=== PATIENT | female | born 1940 | race Caucasian/White ===

== ENCOUNTER 2017-02-23 22:09 | Inpatient (IN) | payer MEDICARE ==
[~2017-02-23] VITALS: Ht 172.7 cm; Wt 72.7 kg
[~2017-02-23 22:09] MED LIST: ADVAI250I INH; ALBU1AER INH; ATOR20TA PO; DILT30 PO; DOXE50CA3 PO; FURO20 PO; HALO0.5T PO; LEVO.025 PO; LORA0.5T PO; LORTA5 PO; POTA-243 PO; RIVA20 PO; SERT-129 PO; SPIRCAP INH; Z.0.COMMODE-3:1; Z.0.CPM; Z.0.WALKERFRONT
[2017-02-23 22:10] VITALS: BP 127/59; PULSE 102; RESP 16; TEMP 98; O2SAT 87
[2017-02-23] MEDS ORDERED: ACTIVATED CHARCOAL LIQUID 25 GM/120 ML BTL PO ONE (22:15)
--- NOTE | 2017-02-23 22:26 | PD ---
HPI Chief Complaint: OD/ Ingestion Time Seen by Provider: 22:11 Travel History International Travel<30 days: No Contact w/Intl Traveler<30days: No Traveled to known affect area: No History of Present Illness HPI 76-year-old female here for evaluation after unintentionally taking 28 of her 20 mg Xarelto pills today. Patient reports that she thought that she was taking her nightly medications. She then realized she was only taking the Xarelto. Other than feeling nervous about what could happen to her, the patient is denying any physical complaints. No chest pain or dyspnea. No abdominal pain. PFSH Past Medical History Atrial Fibrillation: Yes Cancer: No COPD: Yes Diabetes: No Endocrine: No Gastrointestinal Disorders: Yes (CONSTIPATION ) Genitourinary: No Hepatitis: No Hiatal Hernia: Yes (EXTENDS OVE AND RESTS ON LUNGS/HEART) Hypertension: Yes (PAST HISTORY) Immune Disorder: No Musculoskeletal: Yes (OSTEOARTHRITIS LEFT KNEE, RIGHT HIP) Neurologic: No Psychiatric: Yes (DEPRESSION/ANXIETY) Reproductive: No Respiratory: Yes (COPD) Tetanus Vaccination: Unknown Influenza Vaccination: Yes Past Surgical History Abdominal Surgery: No AICD: No Body Medical Devices: 5 DENTAL IMPLANTS Cardiac Surgery: No Ear Surgery: No Endocrine Surgery: No Eye Surgery: No Genitourinary Surgery: No Gynecologic Surgery: Yes (D&C, MULTIPLE ) Joint Replacement: Yes (BILATERAL KNEE REPLACEMENT) Oral Surgery: Yes (DENTAL IMPLANTS X 4, TONSILLECTOMY) Pacemaker: No Thoracic Surgery: No Other Surgery: Yes Social History Alcohol Use: No Tobacco Use: No Substance Use: No Allergies-Medications (Allergen,Severity, Reaction): Coded Allergies: No Known Allergies (Unverified Adverse Reaction, Unknown, 02/23/17) Reported Meds & Prescriptions Reported Meds & Active Scripts Active Reported Flecainide (Flecainide Acetate) 50 Mg Tab 50 Mg PO BID Lorazepam 0.5 Mg Tab 0.25 Mg PO HS PRN Doxepin (Doxepin HCl) 50 Mg Cap 50 Mg PO DAILY Xarelto (Rivaroxaban) 20 Mg Tab 20 Mg PO DAILY Levothyroxine (Levothyroxine Sodium) 150 Mcg Tab 150 Mcg PO DAILY Furosemide 40 Mg Tab 40 Mg PO DAILY Atorvastatin (Atorvastatin Calcium) 20 Mg Tab 20 Mg PO DAILY Sertraline (Sertraline HCl) 100 Mg Tab 100 Mg PO DAILY Iron (Ferrous Sulfate) 18 Mg Tab 65 Mg PO DAILY Docusate Sodium 250 Mg Cap 240 Mg PO DAILY Review of Systems Except as stated in HPI: all other systems reviewed are Neg Physical Exam Narrative GENERAL: Well-developed, well-nourished, awake, alert, comfortable, no apparent distress. SKIN: Focused skin assessment warm/dry. HEAD: Atraumatic. Normocephalic. EYES: Pupils equal and round. No scleral icterus. No injection or drainage. ENT: Mucous membranes pink and moist. NECK: Trachea midline. No JVD. CARDIOVASCULAR: Regular rate and rhythm. No murmur appreciated. RESPIRATORY: No accessory muscle use. Clear to auscultation. Breath sounds equal bilaterally. GASTROINTESTINAL: Abdomen soft, non-tender, nondistended. MUSCULOSKELETAL: No obvious deformities. No clubbing. No cyanosis. No edema. NEUROLOGICAL: Awake and alert. No obvious cranial nerve deficits. Motor grossly within normal limits. Normal speech. PSYCHIATRIC: Appropriate mood and affect; insight and judgment normal. Data Data Last Documented VS Vital Signs Date Time Temp Pulse Resp B/P (MAP) Pulse Ox O2 Delivery O2 Flow Rate FiO2 02/23/17 22:51 95 Nasal Cannula 4.00 02/23/17 22:10 98.0 102 16 127/59 (81) Orders Orders Complete Blood Count With Diff (02/23/17 22:14) Comprehensive Metabolic Panel (02/23/17 22:14) Electrocardiogram (02/23/17 22:14) Salicylates (Aspirin) (02/23/17 22:14) Tylenol (Acetaminophen) (02/23/17 22:14) Charcoal Activated Liq (Actidose-Aqua Li (02/23/17 22:15) Prothrombin Time / Inr (Pt) (02/23/17 22:25) Act Partial Throm Time (Ptt) (02/23/17 22:25) Labs Laboratory Tests Test 02/23/17 22:20 02/23/17 22:30 White Blood Count 7.1 TH/MM3 Red Blood Count 3.11 MIL/MM3 Hemoglobin 10.9 GM/DL Hematocrit 32.0 % Mean Corpuscular Volume 103.0 FL Mean Corpuscular Hemoglobin 35.1 PG Mean Corpuscular Hemoglobin Concent 34.1 % Red Cell Distribution Width 14.9 % Platelet Count 128 TH/MM3 Mean Platelet Volume 9.1 FL Neutrophils (%) (Auto) 71.7 % Lymphocytes (%) (Auto) 17.2 % Monocytes (%) (Auto) 9.1 % Eosinophils (%) (Auto) 1.1 % Basophils (%) (Auto) 0.9 % Neutrophils # (Auto) 5.1 TH/MM3 Lymphocytes # (Auto) 1.2 TH/MM3 Monocytes # (Auto) 0.6 TH/MM3 Eosinophils # (Auto) 0.1 TH/MM3 Basophils # (Auto) 0.1 TH/MM3 CBC Comment DIFF FINAL Differential Comment Blood Urea Nitrogen 5 MG/DL Creatinine 0.74 MG/DL Random Glucose 87 MG/DL Total Protein 6.2 GM/DL Albumin 2.7 GM/DL Calcium Level 8.0 MG/DL Alkaline Phosphatase 137 U/L Aspartate Amino Transf (AST/SGOT) 48 U/L Alanine Aminotransferase (ALT/SGPT) 31 U/L Total Bilirubin 0.6 MG/DL Sodium Level 139 MEQ/L Potassium Level 3.4 MEQ/L Chloride Level 96 MEQ/L Carbon Dioxide Level 36.2 MEQ/L Anion Gap 7 MEQ/L Estimat Glomerular Filtration Rate 76 ML/MIN Acetaminophen Level LESS THAN 2.0 MCG/ML Prothrombin Time 23.7 SEC Prothromb Time International Ratio 2.3 RATIO Activated Partial Thromboplast Time 50.1 SEC MDM Medical Decision Making Medical Screen Exam Complete: Yes Emergency Medical Condition: Yes Differential Diagnosis Xarelto overdose, coagulopathy Narrative Course Shortly after the patient arrived in the emergency department, poison control was contacted by my nurse, and they recommend starting the patient on activated charcoal as long as the ingestion occurred within 1 hour. Patient reports that the ingestion just occurred about 20-30 minutes prior to arrival. CBC: WBC 7.1, hemoglobin 10.9, hematocrit 32, platelets 128. CMP is remarkable for bicarbonate 36.2, otherwise essentially unremarkable. Tylenol level is negative. PT 23.7, INR 2.3, PTT 50.1. Poison control's new use recommendation is to observe the patient overnight for repeat labs, repeat coags every 4-6 hours, and monitor for signs of bleeding. Case discussed with hotel service supervisor Dr. Ruiz who will admit the patient to his service. Diagnosis Primary Impression: Accidental medication overdose Qualified Codes: T50.901A - Poisoning by unspecified drugs, medicaments and biological substances, accidental (unintentional), initial encounter Admitting Information Admitting Physician Requests: Observation Mccarty,Liban N MD Feb 23, 2017 22:26
[2017-02-23] MEDS ORDERED: FLEC1TAB8 PO (22:32)
[2017-02-23] MEDS ORDERED: ATOR20TA15 PO (22:32)
[2017-02-23] MEDS ORDERED: DOCU250C7 PO (22:32)
[2017-02-23] MEDS ORDERED: LEVO150T7 PO (22:32)
[2017-02-23] MEDS ORDERED: IRON18TA PO (22:32)
[2017-02-23] MEDS ORDERED: FURO40TA PO (22:32)
[2017-02-23] MEDS ORDERED: XARE20TA PO (22:32)
[2017-02-23] MEDS ORDERED: SERT-129 PO (22:32)
[2017-02-23] MEDS ORDERED: LORA0.5T PO (22:32)
[2017-02-23] MEDS ORDERED: DOXE50CA3 PO (22:32)
[2017-02-23 22:44] LABS: AUTOMATED NEUTROPHIL # 5.1 TH/MM3 (1.8-7.7); BASOPHIL # 0.1 TH/MM3 (0-0.2); BASOPHIL % 0.9 % (0.0-2.0); EOSINOPHIL # 0.1 TH/MM3 (0-0.4); EOSINOPHIL % 1.1 % (0.0-4.0); HEMO FLAGS DIFF FINAL; LYMPH % 17.2 % (9.0-44.0); LYMPHOCYTE # 1.2 TH/MM3 (1.0-4.8); MEAN CORPUSCULAR HEMOGLOBIN 35.1 PG (27.0-34.0); MEAN CORPUSCULAR HGB CONC 34.1 % (32.0-36.0); MONO % 9.1 % (0.0-8.0); NEUT % 71.7 % (16.0-70.0); PLATELET COUNT 128 TH/MM3 (150-450); RED BLOOD COUNT 3.11 MIL/MM3 (4.00-5.30); RED CELL DISTRIBUTION WIDTH 14.9 % (11.6-17.2); WHITE BLOOD COUNT 7.1 TH/MM3 (4.0-11.0)
[2017-02-23 22:51] VITALS: O2SAT 95
[2017-02-23 23:07] LABS: ANION GAP 7 MEQ/L (5-15); AST (GOT) 48 U/L (15-37); BICARBONATE 36.2 MEQ/L (21.0-32.0); BLOOD UREA NITROGEN 5 MG/DL (7-18); CHLORIDE 96 MEQ/L (98-107); GLOMERULAR FILTRATION RATE 76 ML/MIN (>89); POTASSIUM 3.4 MEQ/L (3.5-5.1); SODIUM (NA) 139 MEQ/L (136-145)
[2017-02-23 23:10] LABS: ACETAMINOPHEN LESS THAN 2.0 MCG/ML (10.0-30.0); ALKALINE PHOSPHATASE 137 U/L (45-117); ALT (GPT) 31 U/L (10-53); TOTAL BILIRUBIN ADULT 0.6 MG/DL (0.2-1.0)
[2017-02-23 23:18] LABS: APTT (PATIENT) 50.1 SEC (24.3-30.1); INTERNATIONAL NORMALIZED RATIO 2.3 RATIO; PROTHROMBIN TIME - PATIENT 23.7 SEC (9.8-11.6)
[2017-02-23] MEDS ORDERED: RESP: ALBUTEROL 2.5 MG/IPRATROPIUM 0.5 MG NEB (PRN) INH (23:30)
[2017-02-23] MEDS ORDERED: ONDANSETRON HCL 4 MG/2 ML VIAL IV PUSH PRN (23:30)
[2017-02-23] MEDS ORDERED: ACETAMINOPHEN 325 MG TAB PO PRN (23:30)
[2017-02-23] MEDS ORDERED: MISCELLANEOUS NURSING INFORMATION XX SCH (23:30)
[2017-02-23] MEDS ORDERED: SODIUM CHLORIDE 0.9% FLUSH 10 ML FLUSH IV FLUSH PRN (23:30)
[2017-02-23] MEDS ORDERED: CHLORHEXIDINE GLUCONATE 2 % 1 PACK (2 CLOTHS) TOP PRN (23:30)
[2017-02-23] MEDS ORDERED: LORazepam 0.5 MG TAB PO PRN (23:45)
[2017-02-23] MEDS ORDERED: PILL SPLITTER OTHER PRN (23:45)
[2017-02-24] VITALS (14 sets, daily range): BP systolic 106–119; BP diastolic 52–61; PULSE 76–88; RESP 12–18; TEMP 98.2–98.8; O2SAT 93–98
[2017-02-24] MEDS: SODIUM CHLOR 0.9% 1000 ML INJ 1,000 ML IV SCH ×2 (00:17→20:56)
[2017-02-24] MEDS: PANTOPRAZOLE SODIUM 40 MG VIAL IV PUSH SCH ×3 (00:17→20:57)
[2017-02-24] MEDS: FLECAINIDE ACETATE 100 MG TAB PO SCH ×3 (00:56→20:57)
--- NOTE | 2017-02-24 01:36 | HHI.HP ---
[facility] Service Critical Care Medicine Primary Care Physician Basia Solares MD Admission Diagnosis Unintentional Xarelto Overdose Diagnosis: (1) Coagulopathy Diagnosis: Principal (2) Accidental medication overdose Diagnosis: Principal Travel History International Travel<30 Days: No Contact w/Intl Traveler <30 Da: No Traveled to Known Affected Are: No History of Present Illness 76 y/o woman accidently ingested 28 of her 20 mg xarelto tablets. Permanent atrial fibrillation. States she was confused. On arrival INR is prolonged. No active bleeding, stable hemodynamics. Poison control recommends q4h PT-INR. Review of Systems Constitutional: DENIES: Diaphoretic episodes, Fatigue, Fever, Weight gain, Weight loss, Chills, Dizziness, Change in appetite, Night Sweats Endocrine: DENIES: Abnorml menstrual pattern, Heat/cold intolerance, Polydipsia , Polyuria, Polyphagia Eyes: DENIES: Blurred vision, Diplopia, Eye inflammation, Eye pain, Vision loss , Photosensitivity, Double Vision Ears, nose, mouth, throat: DENIES: Tinnitus, Hearing loss, Vertigo, Nasal discharge, Oral lesions, Throat pain, Hoarseness, Ear Pain, Running Nose, Epistaxis, Sinus Pain, Toothache, Odynophagia Respiratory: DENIES: Apneas, Cough, Snoring, Wheezing, Hemoptysis, Sputum production, Shortness of breath Cardiovascular: DENIES: Chest pain, Palpitations, Syncope, Dyspnea on Exertion , PND, Lower Extremity Edema, Orthopnea, Claudication Gastrointestinal: DENIES: Abdominal pain, Black stools, Bloody stools, Constipation, Diarrhea, Nausea, Vomiting, Difficulty Swallowing, Anorexia Genitourinary: DENIES: Abnormal vaginal bleeding, Dysmenorrhea, Dyspareunia, Sexual dysfunction, Urinary frequency, Urinary incontinence, Urgency, Hematuria , Dysuria, Nocturia, Vaginal discharge Musculoskeletal: COMPLAINS OF: Joint pain Integumentary: DENIES: Abnormal pigmentation, Pruritus, Rash, Nail changes, Breast masses, Breast skin changes, Nipple discharge Immunologic/allergic: DENIES: Eczema, Urticaria Past Family Social History Allergies: Coded Allergies: No Known Allergies (Unverified Allergy, Unknown, 02/23/17) Physical Exam Vital Signs Vital Signs Date Time Temp Pulse Resp B/P (MAP) Pulse Ox O2 Delivery O2 Flow Rate FiO2 02/24/17 00:34 02/24/17 00:20 88 16 108/61 (77) 94 Nasal Cannula 4.00 02/23/17 22:51 95 Nasal Cannula 4.00 02/23/17 22:16 91 Nasal Cannula 4.00 02/23/17 22:10 98.0 102 16 127/59 (81) 87 Physical Exam Gen: Well appearing. Head: Atraumatic. Neck: Supple, airway patent. Lungs: Clear. Heart: Irreg Irreg. No JVD. Abdomen: Benign, soft, no guarding. Extremities: Warm, well perfused. Neuro: O X 3, alert, cooperative. M/S grossly intact. Laboratory Laboratory Tests Test 02/23/17 22:20 02/23/17 22:30 02/24/17 00:40 White Blood Count 7.1 Red Blood Count 3.11 Hemoglobin 10.9 Hematocrit 32.0 Mean Corpuscular Volume 103.0 Mean Corpuscular Hemoglobin 35.1 Mean Corpuscular Hemoglobin Concent 34.1 Red Cell Distribution Width 14.9 Platelet Count 128 Mean Platelet Volume 9.1 Neutrophils (%) (Auto) 71.7 Lymphocytes (%) (Auto) 17.2 Monocytes (%) (Auto) 9.1 Eosinophils (%) (Auto) 1.1 Basophils (%) (Auto) 0.9 Neutrophils # (Auto) 5.1 Lymphocytes # (Auto) 1.2 Monocytes # (Auto) 0.6 Eosinophils # (Auto) 0.1 Basophils # (Auto) 0.1 CBC Comment DIFF FINAL Differential Comment Blood Urea Nitrogen 5 Creatinine 0.74 Random Glucose 87 Total Protein 6.2 Albumin 2.7 Calcium Level 8.0 Alkaline Phosphatase 137 Aspartate Amino Transf (AST/SGOT) 48 Alanine Aminotransferase (ALT/SGPT) 31 Total Bilirubin 0.6 Sodium Level 139 Potassium Level 3.4 Chloride Level 96 Carbon Dioxide Level 36.2 Anion Gap 7 Estimat Glomerular Filtration Rate 76 Salicylates Level LESS THAN 1.7 Acetaminophen Level LESS THAN 2.0 Prothrombin Time 23.7 Prothromb Time International Ratio 2.3 Activated Partial Thromboplast Time 50.1 Result Diagram: 02/23/17221902/23/172219 Caprini VTE Risk Assessment Caprini VTE Risk Assessment: No/Low Risk (score <= 1) Caprini Risk Assessment Model Point Value = 1 Point Value = 2 Point Value = 3 Point Value = 5 Age 41-60 Minor surgery BMI > 25 kg/m2 Swollen legs Varicose veins or History of unexplained or recurrent spontaneous Oral contraceptives or hormone replacement Sepsis (< 1 month) Serious lung disease, including pneumonia (< 1 month) Abnormal pulmonary function Acute myocardial infarction Congestive heart failure (< 1 month) History of inflammatory bowel disease Medical patient at bed rest Age 61-74 Arthroscopic surgery Major open surgery (> 45 min) Laparoscopic surgery (> 45 min) Malignancy Confined to bed (> 72 hours) Immobilizing plaster cast Central venous access Age >= 75 History of VTE Family history of VTE Factor V Leiden Prothrombin [id number] Lupus anticoagulant Anticardiolipin antibodies Elevated serum homocysteine Heparin-induced thrombocytopenia Other congenital or acquired thrombophilia Stroke (< 1 month) Elective arthroplasty Hip, pelvis, or leg fracture Acute spinal cord injury (< 1 month) Prophylaxis Regimen Total Risk Factor Score Risk Level Prophylaxis Regimen 0-1 Low Early ambulation 2 Moderate Order ONE of the following: *Sequential Compression Device (SCD) *Heparin 5000 units SQ BID 3-4 Higher Order ONE of the following medications: *Heparin 5000 units SQ TID *Enoxaparin/Lovenox 40 mg SQ daily (WT < 150 kg, CrCl > 30 mL/min) *Enoxaparin/Lovenox 30 mg SQ daily (WT < 150 kg, CrCl > 10-29 mL/min) *Enoxaparin/Lovenox 30 mg SQ BID (WT < 150 kg, CrCl > 30 mL/min) AND/OR *Sequential Compression Device (SCD) 5 or more Highest Order ONE of the following medications: *Heparin 5000 units SQ TID (Preferred with Epidurals) *Enoxaparin/Lovenox 40 mg SQ daily (WT < 150 kg, CrCl > 30 mL/min) *Enoxaparin/Lovenox 30 mg SQ daily (WT < 150 kg, CrCl > 10-29 mL/min) *Enoxaparin/Lovenox 30 mg SQ BID (WT < 150 kg, CrCl > 30 mL/min) AND *Sequential Compression Device (SCD) Assessment and Plan Assessment and Plan Assessment: 1. Coagulopathy. 2. Permanent A-fib. 3. Accidental xarelto overdose. Plan. 1. ICU admit. 2. Protonix BID. 3. Q4h INR per Poison Control, treat only for bleeding. 4. Follow BP closely. 5. No chemical DVT px necessary. 6. K-centra prn bleeding or excessive INR. Overall impression: I anticipate we will need a PCC at some time during first 24 hours. Direct Xa inhibitor will eventually elevate INR and PTT; following INR is probably adequate. Problem Qualifiers (1) Accidental medication overdose: Qualified Codes: T50.901A - Poisoning by unspecified drugs, medicaments and biological substances, accidental (unintentional), initial encounter Jose Ruiz MD Feb 24, 2017 01:36
[2017-02-24] MEDS: CHLORHEXIDINE GLUCONATE 2 % 1 PACK (2 CLOTHS) TOP SCH (04:00)
[2017-02-24 04:39] LABS: AUTOMATED NEUTROPHIL # 3.4 TH/MM3 (1.8-7.7); BASOPHIL % 0.7 % (0.0-2.0); EOSINOPHIL # 0.1 TH/MM3 (0-0.4); EOSINOPHIL % 1.4 % (0.0-4.0); HEMATOCRIT 29.8 % (35.0-46.0); HEMO FLAGS DIFF FINAL; MEAN CELL VOLUME 103.1 FL (80.0-100.0); MEAN CORPUSCULAR HEMOGLOBIN 34.3 PG (27.0-34.0); MEAN CORPUSCULAR HGB CONC 33.3 % (32.0-36.0); MONO % 9.1 % (0.0-8.0); NEUT % 68.8 % (16.0-70.0); PLATELET COUNT 116 TH/MM3 (150-450); RED BLOOD COUNT 2.89 MIL/MM3 (4.00-5.30); RED CELL DISTRIBUTION WIDTH 15.3 % (11.6-17.2); WHITE BLOOD COUNT 4.9 TH/MM3 (4.0-11.0)
[2017-02-24 04:54] LABS: APTT (PATIENT) 39.4 SEC (24.3-30.1); INTERNATIONAL NORMALIZED RATIO 1.8 RATIO; PROTHROMBIN TIME - PATIENT 18.1 SEC (9.8-11.6)
[2017-02-24] MEDS: LEVOTHYROXINE SODIUM 150 MCG TAB PO SCH (05:37)
[2017-02-24] MEDS: SERTRALINE HCL 100 MG TAB PO SCH ×3 (08:09→20:57)
[2017-02-24] MEDS: DOCUSATE CALCIUM 240 MG CAP PO SCH (08:09)
[2017-02-24] MEDS: FUROSEMIDE 40 MG TAB PO SCH (08:09)
[2017-02-24] MEDS: ATORVASTATIN 20 MG TAB PO SCH (08:10)
[2017-02-24] MEDS: SODIUM CHLORIDE 0.9% FLUSH 10 ML FLUSH IV FLUSH SCH ×2 (08:11→20:57)
[2017-02-24] MEDS ORDERED: DOXEPIN HCL 50 MG CAP PO SCH (09:00)
[2017-02-24] MEDS ORDERED: POTASSIUM CHLORIDE 20 MEQ CONTROLLED RELEASE TAB PO ONE (11:00)
[2017-02-24 11:38] LABS: INTERNATIONAL NORMALIZED RATIO 1.4 RATIO; PROTHROMBIN TIME - PATIENT 14.2 SEC (9.8-11.6)
[2017-02-24 13:45] LABS: INTERNATIONAL NORMALIZED RATIO 1.3 RATIO; PROTHROMBIN TIME - PATIENT 13.4 SEC (9.8-11.6)
[2017-02-24 19:17] LABS: INTERNATIONAL NORMALIZED RATIO 1.3 RATIO; PROTHROMBIN TIME - PATIENT 12.7 SEC (9.8-11.6)
[2017-02-24] MEDS: DOXEPIN HCL 50 MG CAP PO SCH (20:57)
[2017-02-24 22:19] LABS: INTERNATIONAL NORMALIZED RATIO 1.3 RATIO; PROTHROMBIN TIME - PATIENT 12.7 SEC (9.8-11.6)
--- NOTE | 2017-02-24 22:27 | EKG ---
Date Performed: 02/23/2017 Time Performed: 22:20:24 PTAGE: 76 years EKG: Sinus rhythm MARKED RIGHT AXIS DEVIATION RIGHT BUNDLE BRANCH BLOCK ABNORMAL ECG PREVIOUS TRACING : 01/02/2015 12.24 Compared to the previous tracing Afib is no longer present DOCTOR: Neo Sumner Interpretating Date/Time 02/24/2017 22:25:33
[2017-02-25] VITALS (14 sets, daily range): BP systolic 95–126; BP diastolic 51–62; PULSE 67–89; RESP 15–59; TEMP 97.9–98.8; O2SAT 89–100
[2017-02-25 01:20] LABS: INTERNATIONAL NORMALIZED RATIO 1.2 RATIO; PROTHROMBIN TIME - PATIENT 12.5 SEC (9.8-11.6)
[2017-02-25] MEDS: CHLORHEXIDINE GLUCONATE 2 % 1 PACK (2 CLOTHS) TOP SCH (03:39)
[2017-02-25 04:33] LABS: INTERNATIONAL NORMALIZED RATIO 1.2 RATIO
[2017-02-25] MEDS: LEVOTHYROXINE SODIUM 150 MCG TAB PO SCH (06:10)
[2017-02-25] MEDS: FUROSEMIDE 40 MG TAB PO SCH (07:44)
[2017-02-25] MEDS: PANTOPRAZOLE SODIUM 40 MG VIAL IV PUSH SCH ×2 (07:44→19:50)
[2017-02-25] MEDS: DOCUSATE CALCIUM 240 MG CAP PO SCH (07:44)
[2017-02-25] MEDS: ATORVASTATIN 20 MG TAB PO SCH (07:44)
[2017-02-25] MEDS: FLECAINIDE ACETATE 100 MG TAB PO SCH ×2 (07:44→19:50)
[2017-02-25] MEDS: SODIUM CHLORIDE 0.9% FLUSH 10 ML FLUSH IV FLUSH SCH ×2 (07:45→19:51)
[2017-02-25 08:27] LABS: INTERNATIONAL NORMALIZED RATIO 1.1 RATIO; PROTHROMBIN TIME - PATIENT 11.5 SEC (9.8-11.6)
--- NOTE | 2017-02-25 11:01 | HHI.CCPN ---
Subjective Remarks/Hospital Course 76 y/o woman accidently ingested 28 of her 20 mg xarelto tablets. Permanent atrial fibrillation. States she was confused. On arrival INR is prolonged. No active bleeding, stable hemodynamics. Poison control recommends q4h PT-INR. 02/25 Patient is lying in bed in [facility]. Afebrile. Objective Vital Signs Date Time Temp Pulse Resp B/P (MAP) Pulse Ox O2 Delivery O2 Flow Rate FiO2 02/25/17 10:00 89 02/25/17 08:47 97 Nasal Cannula 3.00 02/25/17 08:00 98.6 15 119/57 (77) Intake and Output 02/25/17 02/25/17 02/26/17 08:00 16:00 00:00 Intake Total 694 ml 205 ml Balance 694 ml 205 ml Result Diagram: 02/24/17 0412 02/23/17 2220 Other Results Laboratory Tests Test 02/24/17 13:09 02/24/17 17:38 02/24/17 20:40 02/25/17 00:58 Prothrombin Time 13.4 SEC 12.7 SEC 12.7 SEC 12.5 SEC Prothromb Time International Ratio 1.3 RATIO 1.3 RATIO 1.3 RATIO 1.2 RATIO Test 02/25/17 04:08 02/25/17 07:55 Prothrombin Time 12.0 SEC 11.5 SEC Prothromb Time International Ratio 1.2 RATIO 1.1 RATIO Objective Remarks GENERAL: Patient is lying in bed in [facility] SKIN: Warm and dry. HEAD: Normocephalic. EYES: No scleral icterus. No injection or drainage. NECK: Supple, trachea midline. No JVD or lymphadenopathy. CARDIOVASCULAR: Regular rate and rhythm without murmurs, gallops, or rubs. RESPIRATORY: Breath sounds equal bilaterally. No accessory muscle use. GASTROINTESTINAL: Abdomen soft, non-tender, nondistended. MUSCULOSKELETAL: No cyanosis, or edema. neuro: Awake and alert. A/P Assessment and Plan 1)Resp Insuff 2)s/p Coagulopathy. 3)Permanent A-fib. 4)Accidental xarelto overdose. 5) Anemia 6) Elevated AST Plan. Neuro: Awake and alert. On Zoloft and Doxepin Pulm: Oxygen PRN keep sat >92% Bronchodilators CV: Monitor HR and BP keep MAP>65mmHg on Flecainide 50mg BID GI: On PO diet : Monitor renal function, electrolytes replacement per protocol On Lasix 40mg daily,d/c IVF ID: Monitor for signs of infections ( Fever, WBC) Endo; SSI if needed for glycemic control On Synthroid 150 mcg daily Heme: Monitor CBC, coags- INR 1.1 today GI/DVT prophylaxis Check labs today Will transfer out ICU and consult [facility] for medical management. Level 2 Jillian Bunch MD Feb 25, 2017 11:01
[2017-02-25 11:18] LABS: HEMATOCRIT 34.2 % (35.0-46.0); MEAN CELL VOLUME 104.5 FL (80.0-100.0); MEAN CORPUSCULAR HEMOGLOBIN 34.4 PG (27.0-34.0); MEAN CORPUSCULAR HGB CONC 32.9 % (32.0-36.0); PLATELET COUNT 128 TH/MM3 (150-450); RED BLOOD COUNT 3.27 MIL/MM3 (4.00-5.30); REVIEW FLAG FINAL; WHITE BLOOD COUNT 4.7 TH/MM3 (4.0-11.0)
[2017-02-25 11:28] LABS: INTERNATIONAL NORMALIZED RATIO 1.1 RATIO; PROTHROMBIN TIME - PATIENT 11.6 SEC (9.8-11.6)
[2017-02-25 11:38] LABS: ALT (GPT) 19 U/L (10-53)
[2017-02-25 11:39] LABS: ALKALINE PHOSPHATASE 117 U/L (45-117); TOTAL BILIRUBIN ADULT 0.7 MG/DL (0.2-1.0)
[2017-02-25 11:41] LABS: ANION GAP 5 MEQ/L (5-15); AST (GOT) 40 U/L (15-37); BICARBONATE 37.4 MEQ/L (21.0-32.0); BLOOD UREA NITROGEN 3 MG/DL (7-18); CHLORIDE 97 MEQ/L (98-107); GLOMERULAR FILTRATION RATE 119 ML/MIN (>89); MAGNESIUM 1.1 MG/DL (1.5-2.5); SODIUM (NA) 139 MEQ/L (136-145)
[2017-02-25] MEDS ORDERED: POTASSIUM PHOSPHATE MONOBASIC 500 MG TAB PO PRN (13:00)
[2017-02-25] MEDS ORDERED: POTASSIUM PHOSPHATE INJ 30 MMOL in SODIUM CHLOR 0.9% 250 ML INJ 250 ML IV PRN (13:00)
[2017-02-25] MEDS ORDERED: POTASSIUM CHLORIDE 25 MEQ EFFERVESCENT TAB PO PRN (13:00)
[2017-02-25] MEDS ORDERED: POTASSIUM CHLOR 40 MEQ PREMIX 100 ML IV PRN ×2 (13:00)
[2017-02-25] MEDS ORDERED: MAGNESIUM OXIDE 400 MG TAB PO PRN (13:00)
[2017-02-25] MEDS ORDERED: MAGNESIUM SULFATE INJ 2 GM in SODIUM CHLORIDE 0.9% INJ 96 ML IV PRN (13:00)
[2017-02-25] MEDS ORDERED: SODIUM PHOSPHATE INJ 30 MMOL in SODIUM CHLOR 0.9% 250 ML INJ 240 ML IV PRN (13:00)
[2017-02-25] MEDS ORDERED: POTASSIUM CHLOR 20 MEQ PREMIX 100 ML IV PRN (13:00)
[2017-02-25] MEDS ORDERED: MAGNESIUM SULFATE INJ 4 GM in SODIUM CHLORIDE 0.9% INJ 92 ML IV PRN (13:00)
[2017-02-25] MEDS ORDERED: POTASSIUM PHOSPHATE MONOBASIC 500 MG TAB PO/TUBE PRN (13:00)
[2017-02-25] MEDS: POTASSIUM CHLOR 20 MEQ PREMIX 100 ML IV PRN ×4 (14:40→22:07)
[2017-02-25 17:19] LABS: INTERNATIONAL NORMALIZED RATIO 1.1 RATIO; PROTHROMBIN TIME - PATIENT 11.5 SEC (9.8-11.6)
[2017-02-25 19:20] LABS: INTERNATIONAL NORMALIZED RATIO 1.2 RATIO; PROTHROMBIN TIME - PATIENT 11.8 SEC (9.8-11.6)
[2017-02-25] MEDS: DOXEPIN HCL 50 MG CAP PO SCH (19:50)
[2017-02-25] MEDS: SERTRALINE HCL 100 MG TAB PO SCH (19:50)
[2017-02-25 22:56] LABS: INTERNATIONAL NORMALIZED RATIO 1.1 RATIO; PROTHROMBIN TIME - PATIENT 11.3 SEC (9.8-11.6)
[2017-02-26] VITALS (7 sets, daily range): BP systolic 99–126; BP diastolic 50–61; PULSE 67–82; RESP 16–19; TEMP 96.9–98.3; O2SAT 91–100
[2017-02-26] MEDS: CHLORHEXIDINE GLUCONATE 2 % 1 PACK (2 CLOTHS) TOP SCH (04:00)
[2017-02-26] MEDS: LEVOTHYROXINE SODIUM 150 MCG TAB PO SCH (04:51)
[2017-02-26 05:52] LABS: AUTOMATED NEUTROPHIL # 3.1 TH/MM3 (1.8-7.7); BASOPHIL % 0.6 % (0.0-2.0); EOSINOPHIL # 0.2 TH/MM3 (0-0.4); EOSINOPHIL % 3.4 % (0.0-4.0); HEMATOCRIT 31.3 % (35.0-46.0); HEMO FLAGS DIFF FINAL; LYMPH % 20.9 % (9.0-44.0); MEAN CELL VOLUME 104.6 FL (80.0-100.0); MEAN CORPUSCULAR HEMOGLOBIN 34.3 PG (27.0-34.0); MEAN CORPUSCULAR HGB CONC 32.8 % (32.0-36.0); MONO % 9.9 % (0.0-8.0); NEUT % 65.2 % (16.0-70.0); PLATELET COUNT 119 TH/MM3 (150-450); WHITE BLOOD COUNT 4.8 TH/MM3 (4.0-11.0)
[2017-02-26 05:55] LABS: INTERNATIONAL NORMALIZED RATIO 1.1 RATIO; PROTHROMBIN TIME - PATIENT 11.4 SEC (9.8-11.6)
[2017-02-26 06:13] LABS: BLOOD UREA NITROGEN 5 MG/DL (7-18)
[2017-02-26 06:15] LABS: ALKALINE PHOSPHATASE 122 U/L (45-117); TOTAL BILIRUBIN ADULT 0.4 MG/DL (0.2-1.0)
[2017-02-26 06:18] LABS: ALT (GPT) 18 U/L (10-53); ANION GAP 2 MEQ/L (5-15); AST (GOT) 31 U/L (15-37); BICARBONATE 38.6 MEQ/L (21.0-32.0); CHLORIDE 97 MEQ/L (98-107); GLOMERULAR FILTRATION RATE 90 ML/MIN (>89); POTASSIUM 3.8 MEQ/L (3.5-5.1); SODIUM (NA) 138 MEQ/L (136-145)
[2017-02-26] MEDS ORDERED: LACTULOSE SYRUP 20 GM/30 ML CUP PO PRN (06:30)
[2017-02-26] MEDS ORDERED: BISACODYL 10 MG SUPP RECTAL PRN (06:30)
[2017-02-26] MEDS ORDERED: SENNOSIDES 8.6 MG TAB PO PRN (06:30)
[2017-02-26] MEDS ORDERED: MAGNESIUM HYDROXIDE SUSP 30 ML CUP PO PRN (06:30)
[2017-02-26] MEDS: SODIUM CHLORIDE 0.9% FLUSH 10 ML FLUSH IV FLUSH SCH (09:00)
[2017-02-26] MEDS: ATORVASTATIN 20 MG TAB PO SCH (09:12)
[2017-02-26] MEDS: FLECAINIDE ACETATE 100 MG TAB PO SCH (09:13)
[2017-02-26] MEDS: DOCUSATE CALCIUM 240 MG CAP PO SCH (09:13)
[2017-02-26] MEDS: FUROSEMIDE 40 MG TAB PO SCH (09:13)
[2017-02-26] MEDS: PANTOPRAZOLE SODIUM 40 MG VIAL IV PUSH SCH (09:13)
--- NOTE | 2017-02-26 12:55 | HHI.PR ---
Subjective Remarks Consulted by critical care medicine for transfer care and medical management. Chart reviewed. Patient this time has no complaints denies weakness or dizziness. No gross bleeding. Admits to accidental overdose. Patient educated. Case discussed with poison control, patient's netbackup engineer and pharmacy. We'll check factor X level (per lab it will take 4 days to get results). Patient may restart Xarelto on March 01 since it will take 5-6 half lives to clear medicine from the system. Last dose on February 23 p.m. we will contact patient's PCP to monitor factor X level. Objective Vitals Vital Signs Date Time Temp Pulse Resp B/P (MAP) Pulse Ox O2 Delivery O2 Flow Rate FiO2 02/26/17 08:00 97.0 82 18 126/61 (82) 100 02/26/17 04:50 96.9 80 19 114/54 (74) 91 02/26/17 04:00 67 02/26/17 01:48 76 02/26/17 01:25 97.8 81 18 102/50 (67) 92 02/26/17 00:00 80 02/26/17 00:00 98.3 80 16 99/57 (71) 94 02/25/17 22:00 84 02/25/17 20:19 93 Nasal Cannula 3.00 02/25/17 20:00 85 02/25/17 20:00 98.1 85 28 100/62 (75) 90 02/25/17 19:00 94 Nasal Cannula 4.00 02/25/17 18:00 86 02/25/17 16:00 87 02/25/17 16:00 97.9 87 59 99/55 (70) 89 02/25/17 14:00 85 I/O 02/25/17 02/25/17 02/25/17 02/26/17 02/26/17 02/26/17 07:00 15:00 23:00 07:00 15:00 23:00 Intake Total 694 ml 205 ml 1267 ml 923 ml Balance 694 ml 205 ml 1267 ml 923 ml Intake Oral 240 ml 500 ml 240 ml IV Total 454 ml 205 ml 767 ml 683 ml # Voids 2 4 0 # Bowel Movements 0 0 Result Diagram: 02/26/17 0536 02/26/17 0536 Objective Remarks GENERAL: Well-developed, well-nourished in no distress SKIN: Warm and dry. HEAD: Atraumatic. Normocephalic. EYES: Pupils equal and round. No scleral icterus. No injection or drainage. ENT: No nasal bleeding or discharge. Mucous membranes pink and moist. NECK: Trachea midline. No JVD. CARDIOVASCULAR: Regular rate and rhythm. RESPIRATORY: No accessory muscle use. Clear to auscultation. Breath sounds equal bilaterally. GASTROINTESTINAL: Abdomen soft, non-tender, nondistended. MUSCULOSKELETAL: Extremities without clubbing, cyanosis, or edema. No obvious deformities. NEUROLOGICAL: Awake and alert. No obvious cranial nerve deficits. Motor grossly within normal limits. Five out of 5 muscle strength in the arms and legs. Normal speech. PSYCHIATRIC: Appropriate mood and affect; insight and judgment normal. Procedures none A/P Problem List: (1) Coagulopathy ICD Code: D68.9 - Coagulation defect, unspecified (2) Accidental medication overdose ICD Code: T50.901A - Poisoning by unspecified drugs, medicaments and biological substances, accidental (unintentional), initial encounter Status: Acute Assessment and Plan S/p Coagulopathy due to Accidental xarelto overdose. She is hemodynamically stable with no gross bleeding. Case discussed with poison control, patient's netbackup engineer and pharmacy. We'll check factor X level (per lab it will take 4 days to get results). Patient may restart Xarelto on March 01 since it will take 5-6 half lives to clear medicine from the system. Last dose on February 23 p.m. we will contact patient's PCP to monitor factor X level. Permanent A-fib. EKG shows sinus rhythm. Stable Chronic respiratory failure. Stable on nasal cannula Anemia. Stable with no gross bleeding Elevated AST. Resolving Discharge Planning Stable for discharge. Resume home health care PT and visiting nurse who will assist in preparing medicines Problem Qualifiers (1) Accidental medication overdose: Qualified Codes: T50.901A - Poisoning by unspecified drugs, medicaments and biological substances, accidental (unintentional), initial encounter Carlos De Jesus MD Feb 26, 2017 12:55
--- NOTE | 2017-02-26 12:58 | HHI.DCPOC ---
Discharge Care Plan Diagnosis: (1) Accidental medication overdose (2) Coagulopathy Your Health Problems Are: Difficulty with ADL Exercise Tolerance Goals to Promote Your Health * To prevent worsening of your condition and complications * To maintain your health at the optimal level Directions to Meet Your Goals Take your medications as prescribed Follow your dietary instruction Follow activity as directed Keep your appointments as scheduled Take your immunizations and boosters as scheduled If your symptoms worsen call your PCP, if no PCP go to Urgent Care Center or Emergency Room Smoking is Dangerous to Your Health. Avoid second hand smoke Call the 24-hour hour crisis hotline for domestic abuse at Carlos De Jesus MD Feb 26, 2017 12:58
--- NOTE | 2017-02-26 13:00 | HHI.FF ---
Face to Face Verification Diagnosis: (1) Accidental medication overdose (2) Coagulopathy Physical Therapy Order: Evaluate and Treat, Improve ambulation, Strength and gait training Home Health Nursing Order: Medical education Signs/symptoms of disease process Medication education-adverse effect Nursing assessment with vital signs I have seen patient Vanna Ahumada on 02/26/17. My clinical findings support the need for the requested home health care services because: Deconditioned w/ increased weakness Med compliance is questionable I certify that my clinical findings support that this patient is homebound because: Need for psychosocial assistance Carlos De Jesus MD Feb 26, 2017 13:00
[2017-02-26] MEDS ORDERED: XARE20TA PO (13:02)
--- NOTE | 2017-02-26 13:03 | HHI.DS ---
Discharge Summary Admission Date Feb 23, 2017 at 23:25 Discharge Date: Feb 26, 2017 Admitting Diagnosis Unintentional Xarelto Overdose (1) Coagulopathy ICD Code: D68.9 - Coagulation defect, unspecified Diagnosis: Principal (2) Accidental medication overdose ICD Code: T50.901A - Poisoning by unspecified drugs, medicaments and biological substances, accidental (unintentional), initial encounter Diagnosis: Principal Status: Acute Procedures none Brief History - From Admission 76 y/o woman accidently ingested 28 of her 20 mg xarelto tablets. Permanent atrial fibrillation. States she was confused. On arrival INR is prolonged. No active bleeding, stable hemodynamics. Poison control recommends q4h PT-INR. CBC/BMP: 02/26/17 0536 02/26/17 0536 Significant Findings Laboratory Tests Test 02/23/17 22:20 02/23/17 22:30 02/24/17 00:40 02/24/17 04:12 Red Blood Count 3.11 MIL/MM3 (4.00-5.30) 2.89 MIL/MM3 (4.00-5.30) Hemoglobin 10.9 GM/DL (11.6-15.3) 9.9 GM/DL (11.6-15.3) Hematocrit 32.0 % (35.0-46.0) 29.8 % (35.0-46.0) Mean Corpuscular Volume 103.0 FL (80.0-100.0) 103.1 FL (80.0-100.0) Mean Corpuscular Hemoglobin 35.1 PG (27.0-34.0) 34.3 PG (27.0-34.0) Platelet Count 128 TH/MM3 (150-450) 116 TH/MM3 (150-450) Neutrophils (%) (Auto) 71.7 % (16.0-70.0) Monocytes (%) (Auto) 9.1 % (0.0-8.0) 9.1 % (0.0-8.0) Blood Urea Nitrogen 5 MG/DL (7-18) Total Protein 6.2 GM/DL (6.4-8.2) Albumin 2.7 GM/DL (3.4-5.0) Calcium Level 8.0 MG/DL (8.5-10.1) Alkaline Phosphatase 137 U/L (45-117) Aspartate Amino Transf (AST/SGOT) 48 U/L (15-37) Potassium Level 3.4 MEQ/L (3.5-5.1) Chloride Level 96 MEQ/L (98-107) Carbon Dioxide Level 36.2 MEQ/L (21.0-32.0) Estimat Glomerular Filtration Rate 76 ML/MIN (>89) Salicylates Level LESS THAN 1.7 MG/DL Acetaminophen Level LESS THAN 2.0 MCG/ML Prothrombin Time 23.7 SEC (9.8-11.6) 18.1 SEC (9.8-11.6) Activated Partial Thromboplast Time 50.1 SEC (24.3-30.1) 39.4 SEC (24.3-30.1) Test 02/24/17 10:49 02/24/17 13:09 02/24/17 17:38 02/24/17 20:40 Prothrombin Time 14.2 SEC (9.8-11.6) 13.4 SEC (9.8-11.6) 12.7 SEC (9.8-11.6) 12.7 SEC (9.8-11.6) Test 02/25/17 00:58 02/25/17 04:08 02/25/17 07:55 02/25/17 10:45 Prothrombin Time 12.5 SEC (9.8-11.6) 12.0 SEC (9.8-11.6) Red Blood Count 3.27 MIL/MM3 (4.00-5.30) Hemoglobin 11.3 GM/DL (11.6-15.3) Hematocrit 34.2 % (35.0-46.0) Mean Corpuscular Volume 104.5 FL (80.0-100.0) Mean Corpuscular Hemoglobin 34.4 PG (27.0-34.0) Platelet Count 128 TH/MM3 (150-450) Blood Urea Nitrogen 3 MG/DL (7-18) Total Protein 5.9 GM/DL (6.4-8.2) Albumin 2.4 GM/DL (3.4-5.0) Calcium Level 7.9 MG/DL (8.5-10.1) Magnesium Level 1.1 MG/DL (1.5-2.5) Aspartate Amino Transf (AST/SGOT) 40 U/L (15-37) Potassium Level 3.0 MEQ/L (3.5-5.1) Chloride Level 97 MEQ/L (98-107) Carbon Dioxide Level 37.4 MEQ/L (21.0-32.0) Test 02/25/17 15:20 02/25/17 18:20 02/25/17 22:24 02/26/17 05:36 Prothrombin Time 11.8 SEC (9.8-11.6) Red Blood Count 3.00 MIL/MM3 (4.00-5.30) Hemoglobin 10.3 GM/DL (11.6-15.3) Hematocrit 31.3 % (35.0-46.0) Mean Corpuscular Volume 104.6 FL (80.0-100.0) Mean Corpuscular Hemoglobin 34.3 PG (27.0-34.0) Platelet Count 119 TH/MM3 (150-450) Monocytes (%) (Auto) 9.9 % (0.0-8.0) Blood Urea Nitrogen 5 MG/DL (7-18) Total Protein 5.8 GM/DL (6.4-8.2) Albumin 2.3 GM/DL (3.4-5.0) Calcium Level 7.8 MG/DL (8.5-10.1) Alkaline Phosphatase 122 U/L (45-117) Chloride Level 97 MEQ/L (98-107) Carbon Dioxide Level 38.6 MEQ/L (21.0-32.0) Anion Gap 2 MEQ/L (5-15) PE at Discharge GENERAL: Well-developed, well-nourished in no distress SKIN: Warm and dry. HEAD: Atraumatic. Normocephalic. EYES: Pupils equal and round. No scleral icterus. No injection or drainage. ENT: No nasal bleeding or discharge. Mucous membranes pink and moist. NECK: Trachea midline. No JVD. CARDIOVASCULAR: Regular rate and rhythm. RESPIRATORY: No accessory muscle use. Clear to auscultation. Breath sounds equal bilaterally. GASTROINTESTINAL: Abdomen soft, non-tender, nondistended. MUSCULOSKELETAL: Extremities without clubbing, cyanosis, or edema. No obvious deformities. NEUROLOGICAL: Awake and alert. No obvious cranial nerve deficits. Motor grossly within normal limits. Five out of 5 muscle strength in the arms and legs. Normal speech. PSYCHIATRIC: Appropriate mood and affect; insight and judgment normal. Hospital Course S/p Coagulopathy due to Accidental xarelto overdose. She is hemodynamically stable with no gross bleeding. Case discussed with poison control, patient's enlisted aircrew/aerial observer/gunner and pharmacy. We'll check factor X level (per lab it will take 4 days to get results). Patient may restart Xarelto on March 01 since it will take 5-6 half lives to clear medicine from the system. Last dose on February 23 p.m. we will contact patient's PCP to monitor factor X level. Permanent A-fib. EKG shows sinus rhythm. Stable Chronic respiratory failure. Stable on nasal cannula Anemia. Stable with no gross bleeding Elevated AST. Resolving Pt Condition on Discharge: Stable Discharge Disposition: Disch w/ Home Health Serv Discharge Time: > 30 minutes Discharge Instructions DIET: Follow Instructions for: Heart Healthy Diet Activities you can perform: Regular-No Restrictions Activities to Avoid: Contact Sports, Driving Follow up Referrals: Cardiology - 1 Week PCP Follow-up - 2-3 Days Changed Medications: Rivaroxaban (Xarelto) 20 Mg Tab 20 MG PO DAILY for Blood Clot Prevention, #7 TAB 0 Refills (Medication details modified) start 03/01/17 if no bleeding Continued Medications: Atorvastatin (Atorvastatin) 20 Mg Tab 20 MG PO DAILY for Cholesterol Management, #30 TAB 0 Refills Docusate Sodium (Docusate Sodium) 250 Mg Cap 240 MG PO DAILY for Prevent Constipation, #30 CAP 0 Refills Doxepin (Doxepin) 50 Mg Cap 50 MG PO DAILY, #60 CAP 0 Refills Ferrous Sulfate (Iron) 18 Mg Tab 65 MG PO DAILY Flecainide (Flecainide) 50 Mg Tab 50 MG PO BID for Regulate Heart Beat, #60 TAB 0 Refills Furosemide (Furosemide) 40 Mg Tab 40 MG PO DAILY, #30 TAB 0 Refills Levothyroxine (Levothyroxine) 150 Mcg Tab 150 MCG PO DAILY for Thyroid, #30 TAB 0 Refills Lorazepam (Lorazepam) 0.5 Mg Tab 0.25 MG PO HS PRN for ANXIETY AND/OR INSOMNIA, TAB 0 Refills Sertraline (Sertraline) 100 Mg Tab 100 MG PO DAILY, #30 TAB 0 Refills Additional Information follow up factor 10 level Carlos De eJsus MD Feb 26, 2017 13:03
[2017-02-26 13:35] LABS: INTERNATIONAL NORMALIZED RATIO 1.1 RATIO; PROTHROMBIN TIME - PATIENT 11.1 SEC (9.8-11.6)
[2017-02-26 17:33] LABS: INTERNATIONAL NORMALIZED RATIO 1.1 RATIO; PROTHROMBIN TIME - PATIENT 11.3 SEC (9.8-11.6)
== END 2017-02-26 18:39 | disposition home health service (06) | DRG 918 ==
LOC: NEPE 22:09 → NEDA 23:25 → HIMN 02-24 00:25 → N06B 02-26 00:43
PROVIDERS: ADMIT Internal Medicine; ATTEND Internal Medicine
DX: T45.511A Poisoning by anticoagulants, accidental (unintentional), initial encounter (principal); J96.10 Chronic respiratory failure, unspecified whether with hypoxia or hypercapnia; D68.9 Coagulation defect, unspecified; I48.2 Chronic atrial fibrillation; J44.9 Chronic obstructive pulmonary disease, unspecified; D64.9 Anemia, unspecified; F41.9 Anxiety disorder, unspecified; F32.9 Major depressive disorder, single episode, unspecified; K59.00 Constipation, unspecified; Z96.653 Presence of artificial knee joint, bilateral; K44.9 Diaphragmatic hernia without obstruction or gangrene; Z79.01 Long term (current) use of anticoagulants
CPT/HCPCS: 80053; 80307; 83735; 84100; 85025; 85027; 85260; 85610; 85730; 87641; 93005; C9113; J2405; J3475; J3480; J7030

== ENCOUNTER 2017-05-28 13:37 | Emergency (ER) | payer MEDICARE ==
[~2017-05-28] VITALS: Ht 170.2 cm; Wt 76.0 kg
[2017-05-28] VITALS (10 sets, daily range): BP systolic 0–178; BP diastolic 0–93; PULSE 0–122; RESP 8–20; TEMP 97.6–97.8; O2SAT 0–100
[~2017-05-28 13:37] MED LIST changes: -ADVAI250I INH; -ALBU1AER INH; -ATOR20TA PO; +ATOR20TA15 PO; -DILT30 PO; +DOCU250C7 PO; +FLEC1TAB8 PO; -FURO20 PO; +FURO40TA PO; -HALO0.5T PO; +IRON18TA PO; -LEVO.025 PO; +LEVO150T7 PO; -LORTA5 PO; -POTA-243 PO; -RIVA20 PO; -SPIRCAP INH; +XARE20TA PO; -Z.0.COMMODE-3:1; -Z.0.CPM; -Z.0.WALKERFRONT
[2017-05-28] MEDS ORDERED: EPINEPHrine HCL (1:10,000) 1 MG/10 ML SYRINGE IV ONE (13:38)
[2017-05-28] MEDS ORDERED: SODIUM BICARBONATE 8.4% INJ 50 MEQ/50 ML SYR IV ONE (13:38)
[2017-05-28] MEDS ORDERED: ETOMIDATE 40 MG/20 ML VIAL ONE (13:48)
[2017-05-28] MEDS ORDERED: SUCCINYLCHOLINE CHLORIDE 200 MG/10 ML VIAL ONE (13:48)
[2017-05-28] MEDS ORDERED: SODIUM CHLOR 0.9% 1000 ML INJ 1,000 ML IV ONE ×3 (14:00→14:45)
[2017-05-28] MEDS ORDERED: PROPOFOL 500 MG/50 ML INJ 50 ML ONE (14:06)
[2017-05-28 14:21] LABS: AUTOMATED NEUTROPHIL # 5.9 TH/MM3 (1.8-7.7); BASOPHIL # 0.1 TH/MM3 (0-0.2); BASOPHIL % 0.8 % (0.0-2.0); EOSINOPHIL # 0.1 TH/MM3 (0-0.4); EOSINOPHIL % 0.6 % (0.0-4.0); HEMATOCRIT 39.5 % (35.0-46.0); HEMOGLOBIN 13.2 GM/DL (11.6-15.3); LYMPH % 35.8 % (9.0-44.0); LYMPHOCYTE # 3.8 TH/MM3 (1.0-4.8); MEAN CELL VOLUME 103.4 FL (80.0-100.0); MEAN CORPUSCULAR HEMOGLOBIN 34.5 PG (27.0-34.0); MEAN CORPUSCULAR HGB CONC 33.3 % (32.0-36.0); MEAN PLATELET VOLUME 11.1 FL (7.0-11.0); MONO % 6.8 % (0.0-8.0); MONOCYTE # 0.7 TH/MM3 (0-0.9); PLATELET COUNT 147 TH/MM3 (150-450); RED BLOOD COUNT 3.82 MIL/MM3 (4.00-5.30); RED CELL DISTRIBUTION WIDTH 16.2 % (11.6-17.2); WHITE BLOOD COUNT 10.6 TH/MM3 (4.0-11.0)
--- NOTE | 2017-05-28 14:36 | RADRPT ---
EXAM DATE/TIME: 05/28/2017 14:22 [facility] COMPARISON: No previous studies available for comparison. INDICATIONS : Altered mental status RADIATION DOSE: 56.35 CTDIvol (mGy) MEDICAL HISTORY : Unobtainable SURGICAL HISTORY : Unobtainable ENCOUNTER: Initial ACUITY: 1 day PAIN SCALE: Non-responsive LOCATION: cranial TECHNIQUE: Multiple contiguous axial images were obtained of the head. Using automated exposure control and adj ustment of the mA and/or kV according to patient size, radiation dose was kept as low as reasonably a chievable to obtain optimal diagnostic quality images. DICOM format image data is available electro nically for review and comparison. FINDINGS: CEREBRUM: The ventricles are normal for age. Diffuse cortical atrophy and chronic white matter changes. No bryan dence of midline shift, mass lesion, hemorrhage or acute infarction. No extra-axial fluid collection s are seen. POSTERIOR FOSSA: The cerebellum and brainstem are intact. The 4th ventricle is midline. The cerebellopontine angle i s unremarkable. EXTRACRANIAL: The visualized portion of the orbits is intact. SKULL: The calvaria is intact. No evidence of skull fracture. CONCLUSION: 1. No acute intracranial hemorrhage. 2. Chronic bilateral cortical atrophy and white matter changes. Kem Curran MD on May 28, 2017 at 14:33 Board Certified Radiologist. This report was verified electronically.
--- NOTE | 2017-05-28 14:36 | PD ---
HPI Chief Complaint: Code Blue Time Seen by Provider: 13:55 Travel History International Travel<30 days: No Contact w/Intl Traveler<30days: No Traveled to known affect area: No History of Present Illness HPI Approximately 77-year-old female presents by ambulance. She was supposed to have a orthodontic procedure when she was seen and they thought she was too sick so she was sent home. The paramedics arrived in the parking lot by report and she was unresponsive with a GCS of 3 and hypotensive. On my examination she was apneic and had no pulses CPR was started on arrival. Patient cannot provide me with any history. Staff confirmed with family that she was full code. PFSH Past Medical History Medical History: Unable to Obtain Past Surgical History Surgical History: Unable to Obtain Social History Tobacco Use: No (unable to obtain) Allergies-Medications (Allergen,Severity, Reaction): Coded Allergies: No Known Allergies (Verified Allergy, Unknown, 05/28/17) Review of Systems ROS Limitations: Clinical Condition Physical Exam Exam Limitations: Clinical Condition Narrative General: In severe distress, focused exam performed Skin: Cool and dry Eyes: Pupils equal Neck: Trachea midline Cardiovascular: Pulseless Respiratory: apneic Abdomen:nondistended Extremities: knee replacement scars noted bilaterally Neuro: unresponsive Data Data Last Documented VS Vital Signs Date Time Temp Pulse Resp B/P (MAP) Pulse Ox O2 Delivery O2 Flow Rate FiO2 05/28/17 14:35 98 Ventilator 50 05/28/17 14:30 97.7 98 18 138/56 (83) 05/28/17 14:21 15.00 Orders Orders Succinylcholine Inj (Quelicin Inj) (05/28/17 13:48) Etomidate Inj (Amidate Inj) (05/28/17 13:48) Electrocardiogram (05/28/17 13:55) Complete Blood Count With Diff (05/28/17 13:55) Comprehensive Metabolic Panel (05/28/17 13:55) Prothrombin Time / Inr (Pt) (05/28/17 13:55) Act Partial Throm Time (Ptt) (05/28/17 13:55) Lactic Acid Sepsis Protocol (05/28/17 13:55) Magnesium (Mg) (05/28/17 13:55) Phosphorus (Po4) (05/28/17 13:55) Ckmb (Isoenzyme) Profile (05/28/17 13:55) Troponin I (05/28/17 13:55) Urinalysis - C+S If Indicated (05/28/17 13:55) Blood Culture (05/28/17 13:55) Chest, Single Ap (05/28/17 13:55) Blood Glucose (05/28/17 13:55) Ecg Monitoring (05/28/17 13:55) Iv Access Insert/Monitor (05/28/17 13:55) Oximetry (05/28/17 13:55) Oxygen Administration (05/28/17 13:55) Ct Brain W/O Iv Contrast(Rout) (05/28/17 13:55) Arterial Blood Gas (Abg) (05/28/17 ) Urinary Catheter Insert/Apply (05/28/17 13:58) Avril-Gastric Tube Insert/Mon (05/28/17 13:58) Sodium Chlor 0.9% 1000 Ml Inj (Ns 1000 M (05/28/17 14:00) Propofol 500 Mg/50 Ml Inj (Diprivan 500 (05/28/17 14:06) Cefepime Inj (Maxipime Inj) (05/28/17 14:39) Azithromycin Inj (Zithromax Inj) (05/28/17 14:39) Sodium Chlor 0.9% 1000 Ml Inj (Ns 1000 M (05/28/17 14:45) Etomidate Inj (Amidate Inj) (05/28/17 14:45) Succinylcholine Inj (Quelicin Inj) (05/28/17 14:45) Sodium Chloride 0.9% Flush (Ns Flush) (05/28/17 14:45) Sodium Chlor 0.9% 1000 Ml Inj (Ns 1000 M (05/28/17 14:45) Admit Order (Ed Use Only) (05/28/17 14:43) CKMB (05/28/17 14:04) CKMB% (05/28/17 14:04) Labs Laboratory Tests Test 05/28/17 14:04 05/28/17 14:09 05/28/17 14:10 05/28/17 14:18 White Blood Count 10.6 TH/MM3 Red Blood Count 3.82 MIL/MM3 Hemoglobin 13.2 GM/DL Hematocrit 39.5 % Mean Corpuscular Volume 103.4 FL Mean Corpuscular Hemoglobin 34.5 PG Mean Corpuscular Hemoglobin Concent 33.3 % Red Cell Distribution Width 16.2 % Platelet Count 147 TH/MM3 Mean Platelet Volume 11.1 FL Neutrophils (%) (Auto) 56.0 % Lymphocytes (%) (Auto) 35.8 % Monocytes (%) (Auto) 6.8 % Eosinophils (%) (Auto) 0.6 % Basophils (%) (Auto) 0.8 % Neutrophils # (Auto) 5.9 TH/MM3 Lymphocytes # (Auto) 3.8 TH/MM3 Monocytes # (Auto) 0.7 TH/MM3 Eosinophils # (Auto) 0.1 TH/MM3 Basophils # (Auto) 0.1 TH/MM3 CBC Comment AUTO DIFF Differential Comment AUTO DIFF CONFIRMED Platelet Estimate LOW Platelet Morphology Comment ENLARGED Ovalocytes 1+ Blood Urea Nitrogen 6 MG/DL Creatinine 1.03 MG/DL Random Glucose 133 MG/DL Total Protein 6.5 GM/DL Albumin 2.4 GM/DL Calcium Level 7.3 MG/DL Phosphorus Level 5.2 MG/DL Magnesium Level 1.3 MG/DL Alkaline Phosphatase 214 U/L Aspartate Amino Transf (AST/SGOT) 230 U/L Alanine Aminotransferase (ALT/SGPT) 98 U/L Total Bilirubin 1.2 MG/DL Sodium Level 138 MEQ/L Potassium Level 4.5 MEQ/L Chloride Level 93 MEQ/L Carbon Dioxide Level 31.5 MEQ/L Anion Gap 14 MEQ/L Estimat Glomerular Filtration Rate 46 ML/MIN Protein Corrected Calcium 7.6 MG/DL Total Creatine Kinase 139 U/L Creatine Kinase MB 1.8 NG/ML Troponin I LESS THAN 0.02 NG/ML Lactic Acid Level 12.4 mmol/L Prothrombin Time 14.5 SEC Prothromb Time International Ratio 1.4 RATIO Activated Partial Thromboplast Time 25.7 SEC Urine Color LIGHT-YELLOW Urine Turbidity HAZY Urine pH 8.0 Urine Specific [place] 1.008 Urine Protein 100 mg/dL Urine Glucose (UA) TRACE mg/dL Urine Ketones NEG mg/dL Urine Occult Blood SMALL Urine Nitrite NEG Urine Bilirubin NEG Urine Urobilinogen LESS THAN 2.0 MG/DL Urine Leukocyte Esterase NEG Urine RBC 9 /hpf Urine WBC 4 /hpf Urine Squamous Epithelial Cells 6 /hpf Urine Renal Epithelial Cells <1 /hpf Urine Calcium Oxalate Crystals RARE /hpf Urine Hyaline Casts 6 /lpf Microscopic Urinalysis Comment CATH-CULT NOT IND MDM Medical Decision Making Medical Screen Exam Complete: Yes Emergency Medical Condition: Yes Medical Record Reviewed: Yes (Vanna Ahumada records state that she was here for unintentional Xarelto overdose, h/o afib) Interpretation(s) CBC & BMP Diagram 05/28/17 14:04 Total Protein 6.5, Albumin 2.4 L, Calcium Level 7.3 *L, Phosphorus Level 5.2 H, Magnesium Level 1.3 L, Alkaline Phosphatase 214 H, Aspartate Amino Transf (AST/ SGOT) 230 H, Alanine Aminotransferase (ALT/SGPT) 98 H, Total Bilirubin 1.2 H Last [address] 05/28/17 1355 Signed Impressions: Service Date/Time: Sunday, May 28, 2017 14:22 - CONCLUSION: 1. No acute intracranial hemorrhage. 2. Chronic bilateral cortical atrophy and white matter changes. Kem Curran MD Chest X-Ray 05/28/17 1355 Signed Impressions: Service Date/Time: Sunday, May 28, 2017 14:22 - CONCLUSION: 1. ET tube and NG tube are in good position. 2. No pneumothorax. 3. Parenchymal changes in the left lung base. Kem Curran MD Differential Diagnosis Cardiac arrhythmia, intracranial bleed, septic shock, hemorrhagic shock.... Narrative Course patient arrived in [facility]. CPR started. 1 mg of epinephrine and an amp of bicarbonate given. Patient had return of circulation and EKG was done and changes discussed with air conditioning unit tester who agrees no STEMI. But with patient to CT scan and no large bleed noted. She'll be admitted to the ICU for further care. 1540 discussed with in person and daughter over the phone who now request withdrawal of care and inpatient hospice as they initially didn't realize how sick she was, dr lugo at bedside, withdrawal of care signed. Initial orders placed by Dr. Lugo. I ordered a DNR and notified case management and respiratory therapy. 1546 patient has been removed from ventilator and hospice is here 1709 patient time of noted, pulseless, apneic, unresponsive and family at bedside, hospice nurse notified Critical Care Narrative Aggregate critical care time was 110 minutes. Time to perform other separately billable procedures was not included in the critical care time. My time did not include minutes spent treating any other patients simultaneously or on activities that did not directly contribute to the patient's treatment. The services I provided to this patient were to treat and/or prevent clinically significant deterioration that could result in: Arrhythmia, I provided critical care services requiring my management, as noted below: Chart data review, documentation time, medication orders and management, vital sign assessments/reviewing monitor data, ordering and reviewing lab tests, ordering and interpreting/reviewing x-rays and diagnostic studies, care of the patient and discussion of the patient with the admitting physicians. Physician Communication Physician Communication dr banerjee states after reviewing ekg right bundle no stemi criteria dr lugo agrees to admit dr lugo came to bedside and witnessed discussion and concurs to withdraw of care and comfort measures as requested by family Diagnosis Primary Impression: Cardiac arrest Additional Impressions: Respiratory failure Qualified Codes: J96.90 - Respiratory failure, unspecified, unspecified whether with hypoxia or hypercapnia Lactic acidosis Pneumonia Qualified Codes: J18.9 - Pneumonia, unspecified organism Disposition: 20 Condition: Emely Hernandez MD May 28, 2017 14:36
[2017-05-28 14:37] LABS: INTERNATIONAL NORMALIZED RATIO 1.4 RATIO; PROTHROMBIN TIME - PATIENT 14.5 SEC (9.8-11.6)
--- NOTE | 2017-05-28 14:37 | RADRPT ---
EXAM DATE/TIME: 05/28/2017 14:22 [facility] COMPARISON: No previous studies available for comparison. INDICATIONS : Post intubation. OG tube placement. MEDICAL HISTORY : Unobtainable. SURGICAL HISTORY : Unobtainable. ENCOUNTER: Initial ACUITY: 1 day PAIN SCORE: Non-responsive. LOCATION: Bilateral chest FINDINGS: A single view of the chest demonstrates parenchymal changes in the left lung base suggestive of an in filtrate. The right lung is grossly clear. There is an NG tube in the stomach. There is an endotrache al tube in place which appears to be in good position. There is no evidence of pneumothorax. The bony structures are grossly intact. No definite pleural effusions.. No prior studies for comparison. CONCLUSION: 1. ET tube and NG tube are in good position. 2. No pneumothorax. 3. Parenchymal changes in the left lung base. Kem Curran MD on May 28, 2017 at 14:34 Board Certified Radiologist. This report was verified electronically.
[2017-05-28] MEDS ORDERED: CEFEPIME INJ 2,000 MG in SODIUM CHLORIDE 0.9% INJ 100 ML IV STA (14:39)
[2017-05-28] MEDS ORDERED: AZITHROMYCIN INJ 500 MG in SODIUM CHLOR 0.9% 250 ML INJ 250 ML IV STA (14:39)
[2017-05-28] MEDS ORDERED: ETOMIDATE 20 MG/10 ML VIAL IVP ONE (14:45)
[2017-05-28] MEDS ORDERED: SUCCINYLCHOLINE CHLORIDE 200 MG/10 ML VIAL IV PUSH ONE (14:45)
[2017-05-28] MEDS ORDERED: SODIUM CHLORIDE 0.9% FLUSH 10 ML FLUSH IVF PRN (14:45)
[2017-05-28 14:50] LABS: BILIRUBIN, URINE NEG (NEG); BLOOD, URINE SMALL (NEG); CALCIUM OXALATE CRYSTALS,URINE RARE /hpf; GLUCOSE,URINE TRACE mg/dL (NEG); HYALINE CAST, URINE 6 /lpf (RARE); KETONE, URINE NEG (NEG); NITRITE,URINE NEG (NEG); RENAL EPITHELIAL CELLS <1 /hpf; SQUAMOUS EPITHELIAL CELL URINE 6 /hpf (0-5); URINE COLOR LIGHT-YELLOW (YELLW/STRAW); URINE LEUKOCYTE ESTERASE NEG (NEG)
[2017-05-28 14:50] LABS: LACTIC ACID SEPSIS PROTOCOL 12.4 mmol/L (0.4-2.0)
[2017-05-28 14:51] LABS: ALBUMIN 2.4 GM/DL (3.4-5.0); ALKALINE PHOSPHATASE 214 U/L (45-117); ALT (GPT) 98 U/L (10-53); AST (GOT) 230 U/L (15-37); BICARBONATE 31.5 MEQ/L (21.0-32.0); BLOOD UREA NITROGEN 6 MG/DL (7-18); CALCIUM 7.3 MG/DL (8.5-10.1); CALCIUM-PROTEIN CORRECTED 7.6 MG/DL (8.5-10.1); CHLORIDE 93 MEQ/L (98-107); CREATININE 1.03 MG/DL (0.50-1.00); GLOMERULAR FILTRATION RATE 46 ML/MIN (>89); GLUCOSE,RANDOM 133 MG/DL (74-106); MAGNESIUM 1.3 MG/DL (1.5-2.5); PHOSPHORUS 5.2 MG/DL (2.5-4.9); SODIUM (NA) 138 MEQ/L (136-145); TOTAL BILIRUBIN ADULT 1.2 MG/DL (0.2-1.0); TOTAL PROTEIN 6.5 GM/DL (6.4-8.2); TROPONIN I LESS THAN 0.02 NG/ML (0.02-0.05)
[2017-05-28] MEDS ORDERED: MIDAZOLAM 100 MG/100 ML INJ 100 ML ONE (14:52)
[2017-05-28 15:29] LABS: OVALOCYTES 1+ (NORMAL)
[2017-05-28] MEDS ORDERED: MORPHINE SULFATE 8 MG/ML INJ IV PUSH ONE (16:00)
[2017-05-28] MEDS ORDERED: HYOSCYAMINE 0.5 MG/ML AMP IV PUSH ONE (16:00)
[2017-05-28] MEDS ORDERED: MIDAZOLAM HCL 5 MG/ML VIAL (1 ML) IV PUSH ONE ×2 (16:00→16:15)
--- NOTE | 2017-05-28 16:06 | PD.CONS ---
[facility] Service Critical Care Medicine Consult Requested By Dr. Hernandez Reason for Consult PEA Arrest Primary Care Physician Basia Solares MD History of Present Illness HPI This is a 77-year-old female that presented by ambulance. Per report ,the paramedics arrived in the parking lot by report and she was unresponsive with a GCS of 3 and hypotensive. Patient was emergently transported to [facility]. Upon arrival to the ED, Dr. Hernandez examined the patient and noted she was apneic and had no pulses (PEA arrest per report) .CPR was initiated upon arrival. Reports she received 1 round of epinephrine, and 1 round of sodium bicarbonate, with resumption of a rhythm. Critical care medicine was consulted. Upon my arrival to the emergency department, a meeting was in progress with Dr. Hernandez, and the patient's and family friend. Mr. Ahumada stated that he did not realize the patient was "that ill", and was not aware that CPR was initiated and the patient required intubation. At that point he stated that he would desire ventilator withdrawal/comfort care measures ,which was his 's wishes, never to be intubated and on a ventilator. Healthcare power of insurance defense attorney/living will was noted in medical records, which was reviewed by myself and Dr. Hernandez. Code status was placed. On further conversation with Dr. Hernandez and Mr. Ahumada, the patient's daughter was telephone conferenced and concurred with initiation of comfort care measures at this time , requested inpatient hospice. A stat consult to hospice was initiated, comfort care measures were ordered. Exhibits were placed. History PFSH Past Medical History Medical History: Unable to Obtain Past Surgical History Surgical History: Unable to Obtain Social History Tobacco Use: No (unable to obtain) Allergies-Medications Allergies-Medications (Allergen,Severity, Reaction): Coded Allergies: No Known Allergies (Verified Allergy, Unknown, 05/28/17) ROS Review of Systems ROS Limitations: Clinical Condition Physical Exam Vital Signs Vital Signs Date Time Temp Pulse Resp B/P (MAP) Pulse Ox O2 Delivery O2 Flow Rate FiO2 05/28/17 15:39 97.6 94 18 157/63 (94) 100 Ventilator 100 05/28/17 15:20 97.8 87 18 125/66 (85) 100 Ventilator 100 05/28/17 15:01 97.8 96 18 178/93 (121) 100 Ventilator 100 05/28/17 14:35 98 Ventilator 50 05/28/17 14:30 97.7 98 18 138/56 (83) 98 100 05/28/17 14:22 05/28/17 14:21 100 15.00 05/28/17 14:21 100 100 05/28/17 14:00 122 18 144/89 (107) 97 15.00 05/28/17 13:54 50 05/28/17 13:42 0 8 0/0 (0) Physical Exam GENERAL: This is a critically ill appearing patient intubated and sedated, currently on Versed infusion SKIN: Warm and dry. HEAD: Atraumatic. Normocephalic. EYES: Pupils equal and round. No scleral icterus. No injection or drainage. ENT: No nasal bleeding or discharge. Mucous membranes pink and moist. NECK: Trachea midline. No JVD. Orotracheally intubated CARDIOVASCULAR: Normal rate, irregular rhythm. RESPIRATORY: No accessory muscle use. Clear to auscultation. Breath sounds equal bilaterally. GASTROINTESTINAL: Abdomen soft, non-tender, nondistended. No guarding. MUSCULOSKELETAL: Extremities without clubbing, cyanosis, or edema. No obvious deformities. Well healed scar left knee. NEUROLOGICAL: GCS 3 T. Laboratory Laboratory Tests Test 05/28/17 14:04 05/28/17 14:09 05/28/17 14:10 05/28/17 14:18 White Blood Count 10.6 Red Blood Count 3.82 Hemoglobin 13.2 Hematocrit 39.5 Mean Corpuscular Volume 103.4 Mean Corpuscular Hemoglobin 34.5 Mean Corpuscular Hemoglobin Concent 33.3 Red Cell Distribution Width 16.2 Platelet Count 147 Mean Platelet Volume 11.1 Neutrophils (%) (Auto) 56.0 Lymphocytes (%) (Auto) 35.8 Monocytes (%) (Auto) 6.8 Eosinophils (%) (Auto) 0.6 Basophils (%) (Auto) 0.8 Neutrophils # (Auto) 5.9 Lymphocytes # (Auto) 3.8 Monocytes # (Auto) 0.7 Eosinophils # (Auto) 0.1 Basophils # (Auto) 0.1 CBC Comment AUTO DIFF Differential Comment AUTO DIFF CONFIRMED Platelet Estimate LOW Platelet Morphology Comment ENLARGED Ovalocytes 1+ Blood Urea Nitrogen 6 Creatinine 1.03 Random Glucose 133 Total Protein 6.5 Albumin 2.4 Calcium Level 7.3 Phosphorus Level 5.2 Magnesium Level 1.3 Alkaline Phosphatase 214 Aspartate Amino Transf (AST/SGOT) 230 Alanine Aminotransferase (ALT/SGPT) 98 Total Bilirubin 1.2 Sodium Level 138 Potassium Level 4.5 Chloride Level 93 Carbon Dioxide Level 31.5 Anion Gap 14 Estimat Glomerular Filtration Rate 46 Protein Corrected Calcium 7.6 Total Creatine Kinase 139 Creatine Kinase MB 1.8 Troponin I LESS THAN 0.02 Lactic Acid Level 12.4 Prothrombin Time 14.5 Prothromb Time International Ratio 1.4 Activated Partial Thromboplast Time 25.7 Urine Color LIGHT-YELLOW Urine Turbidity HAZY Urine pH 8.0 Urine Specific [place] 1.008 Urine Protein 100 Urine Glucose (UA) TRACE Urine Ketones NEG Urine Occult Blood SMALL Urine Nitrite NEG Urine Bilirubin NEG Urine Urobilinogen LESS THAN 2.0 Urine Leukocyte Esterase NEG Urine RBC 9 Urine WBC 4 Urine Squamous Epithelial Cells 6 Urine Renal Epithelial Cells <1 Urine Calcium Oxalate Crystals RARE Urine Hyaline Casts 6 Microscopic Urinalysis Comment CATH-CULT NOT IND Date/Time Source Procedure Growth Status 05/28/17 14:10 Blood Peripheral Aerobic Blood Culture Pending Received 05/28/17 14:10 Blood Peripheral Anaerobic Blood Culture Pending Received Result Diagram: 05/28/17 1404 05/28/17 1404 Imaging Last Impressions Head CT 05/28/17 1355 Signed Impressions: Service Date/Time: Sunday, May 28, 2017 14:22 - CONCLUSION: 1. No acute intracranial hemorrhage. 2. Chronic bilateral cortical atrophy and white matter changes. Kem Curran MD Chest X-Ray 05/28/17 1355 Signed Impressions: Service Date/Time: Sunday, May 28, 2017 14:22 - CONCLUSION: 1. ET tube and NG tube are in good position. 2. No pneumothorax. 3. Parenchymal changes in the left lung base. Kem Curran MD Septic Shock Reassessment Septic shock perfusion: reassessment completed Assessment and Plan Assessment and Plan Assessment This is a 77-year-old female with multiple comorbidities occlude chronic respiratory failure, hypothyroidism, and chronic A. fib. The patient was found unresponsive and hypotensive unknown period of time, presenting in cardiac Cardiac Arrest ED. S/P Cardiac Arrest Acute Hypoxemic Respiratory Failure Transaminitis- Shock Liver? Lactic Acidemia Electrolyte Derangement Hypoalbuminemia Chronic Afib on Anticoagulant therapy Hypothyroidism Plan Hospice consult Initiation of ventilator withdrawal/comfort care measures-per request of family and patient's living will CCT approx 30 mins Code Status DNR Discussed Condition With Dr. Hernandez, Mr Alvin Ahumada (POA ), Patient's daughter (Conference called) , and [facility] Dana Lugo MD May 28, 2017 16:06
[2017-05-28] MEDS ORDERED: MORPHINE SULFATE 4 MG/ML INJ IV PUSH ONE (16:15)
[2017-05-28] MEDS ORDERED: ACETAMINOPHEN 650 MG SUPP RECTAL PRN (16:30)
[2017-05-28] MEDS ORDERED: HYOSCYAMINE 0.5 MG/ML AMP IV PUSH PRN (16:30)
[2017-05-28] MEDS ORDERED: FUROSEMIDE 20 MG/2 ML VIAL IV PUSH PRN (16:30)
[2017-05-28] MEDS ORDERED: MORPHINE SULFATE 8 MG/ML INJ IV PUSH PRN (16:30)
[2017-05-28] MEDS ORDERED: MORPHINE SULFATE 4 MG/ML INJ IV PUSH PRN (16:30)
[2017-05-28] MEDS ORDERED: LORazepam 2 MG/ML VIAL IV PUSH PRN ×3 (16:30)
[2017-05-28] MEDS ORDERED: LORazepam 2 MG/ML VIAL IV PUSH SCH (20:00)
[2017-05-28] MEDS ORDERED: MORPHINE SULFATE 4 MG/ML INJ IV PUSH SCH (20:00)
--- NOTE | 2017-05-29 14:43 | EKG ---
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
--- NOTE | 2017-05-29 14:43 | EKG ---
Date Performed: 05/28/2017 Time Performed: 13:51:17 PTAGE: 89 years EKG: ATRIAL FLUTTER VERSUS SINUS TACH RIGHT BUNDLE BRANCH BLOCK MARKED RIGHT AXIS DEVIATION OLD INFERIOR KS NO PREVIOUS TRACING DOCTOR: Yared Villalobos Interpretating Date/Time 05/29/2017 14:42:50
== END 2017-05-28 17:08 | disposition expired ==
LOC: EDBD 13:37 → MERGE 13:37 → NEPE 13:37 → NEDA 14:44 → UNDOADMIN 14:44
DX: I46.9 Cardiac arrest, cause unspecified (principal); J96.90 Respiratory failure, unspecified, unspecified whether with hypoxia or hypercapnia; J18.9 Pneumonia, unspecified organism
CPT/HCPCS: 31500; 43752; 51702; 70450; 71045; 80053; 81001; 82550; 82552; 83605; 83735; 84100; 84484; 85025; 85610; 85730; 87040; 92950; 93005; 96365; 96367; 96375; 99291; 99292; J0330; J0456; J0692; J1980; J2250; J2270; J7030; J7050; J0171